=== PATIENT | male | born 1945 | race Caucasian/White ===

== ENCOUNTER → 2017-09-05 14:17 | Outpatient (CLI) | payer MEDICARE, OTHER, SELFPAY | PROVIDERS: PCP Family Medicine; Visit Provider Urology | DX: N40.1 Benign prostatic hyperplasia with lower urinary tract symptoms (principal) | CPT/HCPCS: 36415; 84153 ==

== ENCOUNTER → 2017-10-20 16:30 | Outpatient (CLI) | payer MEDICARE, OTHER, SELFPAY ==
[2017-10-20 17:30] LABS: Add Manual Diff / Slide Review NO; Basophils Percent Auto 0.4 % (0-2); Hematocrit 40.3 % (41-53); Hemoglobin 13.8 g/dL (13.5-17.5); Mean Corpuscular HGB Conc 34.3 % (30-36); Mean Corpuscular Hemoglobin 32.9 PG (26-34); Mean Corpuscular Volume 96.2 fL (80-100); Monocytes Percent Auto 8.4 % (3-14); Neutrophils Absolute Auto 3500 /uL (3000-5900); Neutrophils Percent Auto 55.2 % (50-75); Platelet Count 207 X10^3/uL (150-400); Red Blood Cell Count 4.19 X10^6/uL (4.5-5.9); Red Cell Distribution Width 13.3 % (11.6-14.8); White Blood Cell Count 6.3 X10^3/uL (4.5-11.0)
[2017-10-20 18:24] LABS: Alanine Aminotransferase 22 IU/L (21-72); Albumin 3.9 g/dL (3.5-5.0); Albumin Globulin Ratio 1.3 (1.0-2.8); Alkaline Phosphatase 64 U/L (38-126); Aspartate Aminotransferase 15 IU/L (17-59); Bilirubin Total 0.6 mg/dL (0.2-1.3); Blood Urea Nitrogen 18 mg/dL (9-20); Calcium 9.3 mg/dL (8.4-10.2); Carbon Dioxide 25 mmol/L (22-32); Chloride 109 mmol/L (98-107); Estimated Glomerular Filt Rate 37.3 mL/min (>60); Globulin 2.9 g/dL (1.7-4.1); Glucose 90 mg/dL (80-110); HEMOLYSIS < 15 (0-50); Potassium 4.9 mmol/L (3.4-5.1); Sodium 144 mmol/L (137-145); Total Protein 6.8 g/dL (6.3-8.2)
[2017-10-20 18:55] LABS: TSH w/ Reflex to FT4 1.52 uIU/mL (0.47-4.68)
[2017-10-24 19:44] LABS: Testosterone Free 36.4 pg/mL (30.0-135.0); Testosterone Total 283 ng/dL (250-1100)
== END ==
PROVIDERS: Family Provider Family Medicine; PCP Family Medicine; Visit Provider Family Medicine
DX: R63.4 Abnormal weight loss (principal); R53.83 Other fatigue
CPT/HCPCS: 36415; 80053; 84402; 84403; 84443; 85025

== ENCOUNTER → 2017-10-30 13:54 | Outpatient (CLI) | payer MEDICARE, OTHER, SELFPAY ==
--- NOTE | 2017-10-30 13:56 | DI.RAD.S_ITS ---
PROCEDURE: XR CHEST 2V INDICATIONS: unexplained weight loss TECHNIQUE: 2 views of the chest were acquired. COMPARISON: [facility], , CHEST 2 VIEW, 06/25/2012, 9:33. FINDINGS: Surgical changes and devices: None. Lungs and pleura: Elevation and flattening of the left hemidiaphragm is unchanged. There is tenting of the left cardiac margin. No pleural effusions or pneumothorax. Lungs are clear. Mediastinum: Mediastinal contours are normal. Heart size is normal. Bones and chest wall: No suspicious bony abnormalities. Soft tissues appear unremarkable. IMPRESSION: No interval change from prior exam to raise suspicion of active cardiopulmonary abnormality. 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 Dictated by: Kevin Norris M.D. on 10/30/2017 at 14:07 Approved by: Kevin Norris M.D. on 10/30/2017 at 14:09
== END ==
PROVIDERS: Family Provider Family Medicine; PCP Family Medicine; Visit Provider Family Medicine
DX: R63.4 Abnormal weight loss (principal)
CPT/HCPCS: 71046

== ENCOUNTER → 2017-11-11 08:35 | Outpatient (CLI) | payer MEDICARE, OTHER, SELFPAY ==
--- NOTE | 2017-11-11 09:13 | DI.CT.S_ITS ---
PROCEDURE: CT ABDOMEN PELVIS W CON INDICATIONS: Eval for unexplained weight loss TECHNIQUE: After the administration of oral and intravenous contrast, 5 mm thick sections acquired from the diaphragms to the symphysis. 5 mm thick coronal and sagittal reformats were performed. For radiation dose reduction, the following was used: automated exposure control, adjustment of mA and/or kV according to patient size. COMPARISON: None. FINDINGS: Image quality: Excellent. ABDOMEN: Lung bases: Fat containing left posterior hemidiaphragmatic hernia is present. Lung bases are otherwise clear. Heart size is normal. Solid organs: Liver is normal in size and enhancement. Gallbladder is surgically absent. Biliary system is non-dilated. Pancreas enhances normally. Spleen is normal in size and enhancement. No adrenal nodules. Kidneys are normal in size and enhancement, without hydronephrosis. Peritoneum and bowel: Small diverticulum in the 2nd portion of the duodenum measuring 13 mm. There is mild thickening of the sigmoid colon and rectum diffusely without surrounding fat stranding. Stomach, small bowel, and colon loops are otherwise normal in caliber and wall thickness. Normal appendix. No free fluid or air. Nodes and vessels: No retroperitoneal or mesenteric adenopathy. Aorta and inferior vena cava are normal in caliber. Miscellaneous: No ventral hernias. PELVIS: Genitourinary: Bladder wall thickness is normal. Prostate is enlarged. Multiple calcifications within the prostate are present. Miscellaneous: No inguinal hernias or adenopathy. Bones: No suspicious bony lesions. Left hip arthroplasty. No vertebral body compression fractures. IMPRESSION: 1. Thickening of the sigmoid colon and rectum, which may be related to sequelae of chronic diverticulitis, or suboptimal distention. This could be further assessed with endoscopy, if clinically indicated. 2. Normal appendix. 3. Prostate enlargement; recommend correlation with PSA values. Dictated by: Darcy Tellez M.D. on 11/11/2017 at 11:05 Approved by: Darcy Tellez M.D. on 11/11/2017 at 11:18
[2017-11-11 09:41] LABS: BUN Creatinine Ratio 13.8 (6-22); Blood Urea Nitrogen 22 mg/dL (9-20); Estimated Glomerular Filt Rate 42.7 mL/min (>60)
== END ==
PROVIDERS: PCP Family Medicine; Visit Provider Family Medicine
DX: Z01.812 Encounter for preprocedural laboratory examination (principal); R63.4 Abnormal weight loss; K57.10 Diverticulosis of small intestine without perforation or abscess without bleeding; N40.0 Benign prostatic hyperplasia without lower urinary tract symptoms; Z90.49 Acquired absence of other specified parts of digestive tract
CPT/HCPCS: 36415; 74177; 82565; 84520; Q9967

== ENCOUNTER 2018-10-05 14:56 | Emergency (ER) | payer MEDICARE, OTHER, SELFPAY ==
[2018-10-05 15:05] VITALS: BP 144/85; PULSE 91; RESP 22; O2SAT 98
[2018-10-05 15:14] VITALS: BP 157/90; BP 164/93; PULSE 82; RESP 25; O2SAT 99
[2018-10-05 15:15] VITALS: BP 170/80; PULSE 80
[2018-10-05] MEDS: NITROGLYCERIN 0.4 MG SL TAB SL (15:15)
[2018-10-05 15:18] VITALS: BP 134/87; PULSE 89; RESP 24; O2SAT 98
[2018-10-05 15:18] LABS: Add Manual Diff / Slide Review NO; Basophils Absolute Auto 0 /uL (0-100); Basophils Percent Auto 0.4 % (0-2); Eosinophils Absolute Auto 200 /uL (0-450); Eosinophils Percent Auto 1.7 % (2-4); Hematocrit 42.8 % (41-53); Lymphocytes Absolute Auto 1700 /uL (1100-4500); Lymphocytes Percent Auto 19.3 % (25-40); Mean Corpuscular HGB Conc 32.8 % (30-36); Mean Corpuscular Hemoglobin 32.2 PG (26-34); Mean Corpuscular Volume 97.9 fL (80-100); Monocytes Absolute Auto 800 /uL (0-900); Monocytes Percent Auto 9.1 % (3-14); Neutrophils Absolute Auto 6100 /uL (1500-7000); Neutrophils Percent Auto 69.5 % (50-75); Platelet Count 221 X10^3/uL (150-400); Red Blood Cell Count 4.37 X10^6/uL (4.5-5.9); Red Cell Distribution Width 14.1 % (11.6-14.8); White Blood Cell Count 8.7 X10^3/uL (4.5-11.0)
[2018-10-05] MEDS: ASPIRIN 81 MG TAB 324 MG PO (15:18)
[2018-10-05] MEDS: CLOPIDOGREL 75 MG TABLET 600 MG PO (15:21)
--- NOTE | 2018-10-05 15:21 | ED.CHESTPAIN ---
HPI - Chest Pain General Chief Complaint: Chest Pain Stated Complaint: Thinks having a heart attack Time Seen by Provider: 10/05/18 15:10 Source: patient Mode of arrival: ambulatory Limitations: no limitations History of Present Illness HPI narrative: Patient comes to the emergency department complaining of substernal chest pain radiating to his back since about 11:00 a.m. this morning. He states he felt a little bit of nausea and a little bit of shortness of breath when at all for started. Patient denies lightheadedness. Patient states that he had 1 episode of chest pain last week, and thought it was his allergies acting up, so he took some Zyrtec. The pain seemed to go away, but now has started up again worse than before. Patient denies any dyspnea on exertion or chest pain on exertion earlier in the week. He has a history of hyperlipidemia and hypertension, but is not known to have had any coronary artery disease. Patient denies other complaints at this time. Related Data Home Medications Medication Instructions Recorded Confirmed ASPIRIN (Aspir-Low) 81 mg PO QDAY #0 07/09/12 10/20/17 bupropion HCl [Wellbutrin SR] 100 mg PO HS #0 10/21/16 10/20/17 quetiapine [Seroquel] 100 mg PO HS #0 10/21/16 10/20/17 tadalafil [Cialis] 10 mg PO Q DAY PRN PRN 10/05/18 Previous Rx's Medication Instructions Recorded losartan [Cozaar] 100 mg PO Q DAY #90 tab 06/10/17 naproxen 500 mg tablet 500 mg PO BIDP PRN #120 tab 09/04/17 topiramate 50 mg tablet 50 mg PO BID #180 tab 01/06/18 atorvastatin 20 mg tablet 20 mg PO HS #90 tab 02/19/18 famotidine 20 mg tablet 20 mg PO BID #60 tab 02/24/18 omeprazole 20 mg capsule,delayed 20 mg PO QDAY #30 cap 05/20/18 release propranolol ER 60 mg capsule,24 60 mg PO QDAY #90 cer 05/21/18 hr,extended release Allergies Allergy/AdvReac Type Severity Reaction Status Date / Time codeine [CODEINE] AdvReac Unknown NAUSEA Verified 10/20/17 15:28 Review of Systems Constitutional Denies chills, Denies fever(s), Denies lethargy and Denies weakness Eyes Denies change in vision, Denies eye discharge, Denies irritation and Denies loss of vision ENT Ears, Nose, Mouth, and Throat: Denies change in voice, Denies neck pain and Denies sore throat Cardiovascular Reports chest pain, Denies irregular heart rhythm, Denies lightheadedness, Denies palpitations, Reports dyspnea, Denies dyspnea on exertion and Denies orthopnea Respiratory Denies cough, Reports dyspnea, Denies dyspnea on exertion and Denies wheezing Gastrointestinal Gastrointestinal: Denies abdominal pain, Denies change in bowel habits, Denies diarrhea, Reports nausea and Denies vomiting Genitourinary Denies hematuria, Denies flank pain, Denies urinary incontinence and Denies urinary urgency Musculoskeletal Denies neck pain Integumentary/Breasts Denies pruritus, Denies erythema, Denies rash and Denies wounds Neurologic Denies confusion, Denies loss of vision and Denies weakness Psychiatric Denies anxiety, Denies confusion, Denies depression, Denies homicidal ideation and Denies suicidal ideation Endocrine Denies palpitations Hematologic/Lymphatic Denies easy bruising Allergic/Immunologic Denies wheezing [facility] Medical History Depression (Chronic 12/23/14) Essential hypertension (Chronic 04/18/15) Gastroesophageal reflux disease without esophagitis (Chronic 04/18/15) 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) Mixed hyperlipidemia (Chronic 04/18/15) Posttraumatic stress disorder (Chronic 12/23/14) Slow transit constipation (Chronic 04/18/15) Chronic renal insufficiency, stage III (moderate) (Chronic 04/18/15) Tremor (Chronic 10/03/15) Anxiety (Chronic Unknown) BPH (benign prostatic hyperplasia) (Chronic Unknown) Carpal tunnel syndrome (Chronic 11/2016) Depression (Chronic Unknown) Diverticulitis (Chronic Unknown) Erectile dysfunction (Chronic Unknown) GERD (gastroesophageal reflux disease) (Chronic Unknown) Hyperlipemia (Chronic Unknown) Hypertension (Chronic Unknown) PTSD (post-traumatic stress disorder) (Chronic Unknown) H/O ETOH abuse (Resolved Unknown) Melanoma (Resolved Unknown) Scrotal mass (Resolved Unknown) Squamous cell carcinoma (Resolved Unknown) Surgical History History of orchiectomy (Resolved 06/2012) Hx of excision of dermoid cyst (Resolved ~1972) Hx of neck surgery (Resolved ~1995) History of hip replacement Family History Father Heart disease Congestive heart failure Mother No problems noted. Social History Smoking Status: Never smoker alcohol intake: never substance use type: does not use Family History Father Heart disease Congestive heart failure Mother No problems noted. Social History Smoking Status: Never smoker alcohol intake: never substance use type: does not use Exam Initial Vital Signs Initial Vital Signs: Vital Signs Pulse Rate 91 H 10/05/18 15:05 Respiratory Rate 22 10/05/18 15:05 Blood Pressure 144/85 H 10/05/18 15:05 Pulse Oximetry 98 10/05/18 15:05 Const General: cooperative and well developed Nutritional Appearance: well nourished Orientation: alert, awake, oriented x3 and not confused Other: Patient appears mildly anxious. [facility] Head: normocephalic and atraumatic Ears: external ears normal Nose: external nose normal and No nasal discharge Face and sinus: face symmetric and No dry mucous membranes Mouth: oral mucosae normal and moist mucous membranes Teeth and gingiva: dentition normal Eyes General: appearance normal, both eyes and all related structures Eyelids: eyelids normal Conjunctivae: conjunctivae normal Sclera: sclerae normal Pupils: PERRL EOM: EOM intact bilaterally Neck Neck: normal visual inspection, trachea midline, No lymphadenopathy, No midline deformity and No JVD Lymphatic: No lymphedema Chest Chest: normal inspection of the chest Resp Effort & Inspection: normal respiratory effort, able to speak in complete sentences, no respiratory distress and no use of accessory muscles Auscultation: clear to auscultation bilaterally, no rales, no rhonchi and no wheezes Cardio Rate: regular rate Rhythm: regular rhythm Heart Sounds: no click, no gallops, no murmurs and no rubs Pulses: normal peripheral pulses GI Inspection: non-distended Palpation: soft, no hepatosplenomegaly, No guarding, No pulsatile mass and No tender Auscultation: normal bowel sounds Back/Spine/Pelvis Back: No CVA tenderness Cervical Spine: cervical ROM normal and No pain with cervical ROM Thoracic/Lumbar Spine: thoracic and lumbar spine normal to inspection Skin General: no rashes or lesions noted, No jaundice and No petechiae Neuro General: alert, oriented x3, gait normal and no focal motor deficits Speech: speech normal Extrem General: full ROM, no clubbing, cyanosis or edema, no pedal edema and no calf tenderness Psych Appearance: well kempt Mental Status: mental status grossly normal Attitude: cooperative Thought Content: normal and suicidality Judgment: judgment good Course Course Narrative: EKG was performed upon the patient's arrival in the emergency department, and patient was found to have a STEMI in the lateral leads. STEMI protocol was immediately initiated. Patient was given a heparin bolus and a dose of Plavix. A heparin drip and Lopressor were ordered, as were aspirin and nitroglycerin. I spoke with Dr. Lee at the [facility] Emergency Department, who accepted the patient in transfer be a STEMI protocol. I discussed with the patient the findings and the need for emergent transfer, and patient did agree. Emergent ACLS transfer be a STEMI protocol was arranged and patient was transferred. Orders Ordered: Discontinued Medications Aspirin (Aspirin Chew) 324 mg PO NOW ONE Stop: 10/05/18 15:15 Last Admin: 10/05/18 15:18 Dose: 324 mg Aspirin (Aspirin Chew) 324 mg PO NOW ONE Stop: 10/05/18 15:17 Last Admin: 10/05/18 15:18 Dose: Not Given Clopidogrel Bisulfate (Plavix) 600 mg PO NOW ONE Stop: 10/05/18 15:15 Last Admin: 10/05/18 15:21 Dose: 600 mg Heparin Sodium (Porcine) (Heparin) 5,000 unit IV NOW ONE Stop: 10/05/18 15:15 Last Admin: 10/05/18 15:22 Dose: 5,000 unit Heparin Sodium (Porcine) (Heparin) 5,000 unit IV NOW ONE Stop: 10/05/18 15:17 Last Admin: 10/05/18 15:23 Dose: Not Given Heparin Sodium/Dextrose (Heparin Drip) 25,000 unit in 500 mls @ 20 mls/hr IV CONT FE; Protocol Metoprolol Tartrate (Lopressor) 5 mg IV Q5M FE Stop: 10/05/18 15:26 Nitroglycerin (Nitrostat) 0.4 mg SL [id number] PRN PRN Reason: Chest Pain Last Admin: 10/05/18 15:15 Dose: 0.4 mg Vital Signs - 8 hr 10/05/18 15:05 Pulse Rate 91 H Respiratory Rate 22 Blood Pressure 144/85 H Pulse Oximetry 98 MDM - Chest Pain Medical Records Data Attestation: I reviewed the patient's medical records. Lab Data Attestation: I reviewed the patient's lab results. Result diagrams: 10/05/18 15:08 10/05/18 15:08 Lab Results 10/05/18 10/05/18 Range/Units 15:08 15:08 WBC 8.7 (4.5-11.0) X10^3/uL RBC 4.37 L (4.5-5.9) X10^6/uL Hgb 14.0 (13.5-17.5) g/dL Hct 42.8 (41-53) % MCV 97.9 (80-100) fL MCH 32.2 (26-34) PG MCHC 32.8 (30-36) % RDW 14.1 (11.6-14.8) % Plt Count 221 (150-400) X10^3/uL Neut % (Auto) 69.5 (50-75) % Lymph % (Auto) 19.3 L (25-40) % [place] % (Auto) 9.1 (3-14) % Eos % (Auto) 1.7 L (2-4) % Baso % (Auto) 0.4 (0-2) % Neut # (Auto) 6100 (8712-4913) /uL Lymph # (Auto) 1700 (7348-6751) /uL [place] # (Auto) 800 (0-900) /uL Eos # (Auto) 200 (0-450) /uL Baso # (Auto) 0 (0-100) /uL Sodium 143 (137-145) mmol/L Potassium 4.3 (3.4-5.1) mmol/L Chloride 108 H (98-107) mmol/L Carbon Dioxide 26 (22-32) mmol/L BUN 27 H (9-20) mg/dL Creatinine 1.30 H (0.66-1.25) mg/dL Estimated GFR 54.1 L (>60) mL/min BUN/Creatinine Ratio 20.8 (6-22) Glucose 109 (80-110) mg/dL Calcium 9.1 (8.4-10.2) mg/dL Total Bilirubin 0.6 (0.2-1.3) mg/dL AST 62 H (17-59) IU/L ALT 41 (21-72) IU/L Alkaline Phosphatase 80 (38-126) U/L Total Creatine Kinase 454 H (55-170) U/L CK-MB (CK-2) 12.30 H (<2.37) ng/mL CK-MB (CK-2) Rel Index 2.7 (1.5-5.0) % Troponin I 2.640 H* (0.01-0.034) ng/mL Total Protein 7.2 (6.3-8.2) g/dL Albumin 3.8 (3.5-5.0) g/dL Globulin 3.4 (1.7-4.1) g/dL Albumin/Globulin Ratio 1.1 (1.0-2.8) ECG Data Attestation: I personally reviewed and interpreted this ECG as follows: (See below) Interpretation: Twelve lead EKG performed October 05, 2018 at 3:05 p.m., as follows: Regular ventricular rhythm with a rate of 82 beats per minute OK interval 129 millisecond QRS duration [address] elevations noted in leads V4 through V6, and ST depressions noted in leads V1 and V2. Questionable ST elevation also noted in leads 2, 3, and AVF. Interpretation: Normal sinus rhythm; marked ST elevation, consider lateral injury; ST elevation, consider inferior injury; STEMI; abnormal EKG as interpreted by ED MD. Critical Care Time Critical Care Time: Yes Total Critical Care Time: 30 Attestation: Critical care time was necessary, due to high probability of imminent decline and , due to ST elevation AK. Critical care time is exclusive of separately billable procedures. Critical care time included: Interviewing and examining the patient, ordering and reviewing laboratory studies, ordering and reviewing imaging studies, evaluating cardiac output, [evaluating oxygen saturation], discussion with consultants, discussion with family, re-examining the patient, and documentation. Discharge Plan Departure Patient Disposition: [facility] Clinical Impression: STEMI (ST elevation myocardial infarction) Discharge Date/Time: 10/05/18 15:23 Interventions: ED Discharge Assessment Last Done: 10/05/18 15:23 Prescriptions: No Action ASPIRIN (Aspir-Low) 81 mg PO QDAY Qty: 0 RF: 0 quetiapine [Seroquel] 100 MG tablet 100 mg PO HS Qty: 0 RF: 0 bupropion HCl [Wellbutrin SR] 100 MG tablet extended release 12 hr 100 mg PO HS Qty: 0 RF: 0 losartan [Cozaar] 100 MG tablet 100 mg PO Q DAY Qty: 90 RF: 2 naproxen [Naprosyn] 500 mg tablet 500 mg PO BIDP PRN (Reason: pain) Qty: 120 RF: 3 topiramate [Topamax] 50 mg tablet 50 mg PO BID Qty: 180 RF: 1 famotidine 20 mg tablet 20 mg PO BID Qty: 60 RF: 0 omeprazole 20 mg capsule,delayed release(DR/EC) 20 mg PO QDAY Qty: 30 RF: 0 propranolol [Inderal LA] 60 mg capsule,extended release 24 hr 60 mg PO QDAY Qty: 90 RF: 0 atorvastatin [Lipitor] 20 mg tablet 20 mg PO HS Qty: 90 RF: 1 tadalafil [Cialis] 10 MG tablet 10 mg PO Q DAY PRN PRN (Reason: Erectile Dysfunction) RF: 0
[2018-10-05] MEDS: HEPARIN 5,000 UNIT/ML VIAL 5000 UNIT IV (15:22)
[2018-10-05 15:29] LABS: Alanine Aminotransferase 41 IU/L (21-72); Albumin 3.8 g/dL (3.5-5.0); Albumin Globulin Ratio 1.1 (1.0-2.8); Alkaline Phosphatase 80 U/L (38-126); Aspartate Aminotransferase 62 IU/L (17-59); BUN Creatinine Ratio 20.8 (6-22); Bilirubin Total 0.6 mg/dL (0.2-1.3); Blood Urea Nitrogen 27 mg/dL (9-20); Calcium 9.1 mg/dL (8.4-10.2); Carbon Dioxide 26 mmol/L (22-32); Chloride 108 mmol/L (98-107); Creatine Kinase 454 U/L (55-170); Estimated Glomerular Filt Rate 54.1 mL/min (>60); Globulin 3.4 g/dL (1.7-4.1); Glucose 109 mg/dL (80-110); HEMOLYSIS < 15 (0-50); Potassium 4.3 mmol/L (3.4-5.1); Sodium 143 mmol/L (137-145); Total Protein 7.2 g/dL (6.3-8.2)
--- NOTE | 2018-10-05 15:30 | PC.NURSE ---
Spoke with patient's and daughter and they will give patient's a ride over to [facility] to see patient
[2018-10-05 15:45] LABS: CKMB % Relative Index 2.7 % (1.5-5.0)
--- NOTE | 2018-10-05 16:10 | PC.NURSE ---
Critical troponin called to ED. Faxed results to [facility] ED.
--- NOTE | 2018-10-05 16:19 | PC.NURSE ---
Received call from Ana @ [facility] requesting notes / reports. Printed and faxed as requested.
== END 2018-10-05 15:23 | disposition short-term general hospital (02) ==
PROVIDERS: Emergency Provider Emergency Medicine
DX: I21.3 ST elevation (STEMI) myocardial infarction of unspecified site (principal)
CPT/HCPCS: 36591; 80053; 82550; 82553; 84484; 85025; 93005; 96374; 99283; 99284; J1644

== ENCOUNTER → 2018-12-21 14:04 | Outpatient (CLI) | payer MEDICARE, OTHER, SELFPAY ==
--- NOTE | 2018-12-21 | DI.CT.S_ITS ---
PROCEDURE: CT ABDOMEN PELVIS WO CON INDICATIONS: Personal history of urinary (tract) infections TECHNIQUE: Noncontrast 5 mm thick sections acquired from the diaphragms to the symphysis. 5 mm coronal and sagittal reformats were then performed. For radiation dose reduction, the following was used: automated exposure control, adjustment of mA and/or kV according to patient size. COMPARISON: [facility], CT, CT ABDOMEN PELVIS W CON, 11/11/2017, 10:07. FINDINGS: Image quality: Excellent. ABDOMEN: Lung bases: There is a fat containing left posterior hemidiaphragmatic hernia measuring 70 mm diameter. Lung bases are otherwise clear. Heart size is normal. Solid organs: Liver is normal in size. Gallbladder is surgically absent. Pancreas is normal in contours. Spleen is normal in size. No adrenal nodules. Kidneys are normal in size, without hydronephrosis. There is a septated cyst within the inferior pole right kidney measuring 34 mm. There is a nonobstructing 3 mm diameter calculus within the left interpolar kidney. Peritoneum and bowel: Unenhanced bowel loops demonstrate normal wall thickness and caliber. No free fluid or air. An appendicolith versus retained orally administered contrast is present. No evidence of acute appendicitis. Nodes and vessels: No retroperitoneal or mesenteric adenopathy by size criteria. Aorta and inferior vena cava are normal in caliber. Miscellaneous: No ventral hernias. A healed ventral incision is present. PELVIS: Genitourinary: Bladder wall thickness is normal. Miscellaneous: No inguinal hernias or adenopathy. Bones: No suspicious bony lesions. Left hip arthroplasty has been performed. No vertebral body compression fractures. IMPRESSION: 1. Nonobstructing left renal calculus. 2. No evidence of urinary tract obstruction. 3. Appendicolith versus retained oral contrast. Dictated by: Darcy Tellez M.D. on 12/21/2018 at 17:25 Approved by: Darcy Tellez M.D. on 12/21/2018 at 17:30
== END ==
PROVIDERS: Visit Provider Urology
DX: N20.0 Calculus of kidney (principal); Z87.440 Personal history of urinary (tract) infections; Z90.49 Acquired absence of other specified parts of digestive tract
CPT/HCPCS: 74176

== ENCOUNTER → 2019-06-21 11:04 | Outpatient (CLI) | payer MEDICARE, OTHER, SELFPAY ==
--- NOTE | 2019-06-21 | DI.US.S_ITS ---
PROCEDURE: US RENAL COMPLETE INDICATIONS: Calculus of kidney TECHNIQUE: Real-time scanning was performed of the kidneys and bladder, with image documentation. COMPARISON: [facility], CT, CT ABDOMEN PELVIS WO CON, 12/21/2018, 14:11. FINDINGS: Kidneys: Kidneys are normal in size. Right kidney measures 10.2 cm long; left kidney measures 11.0 cm long. Right renal cortical thickness is 1.5 cm; left renal cortical thickness is 1.5 cm. Renal cortical echotexture is normal. No hydronephrosis or nephrolithiasis. No suspicious solid mass lesions. Inferior right renal cyst redemonstrated measuring 3.7 x 3.0 x 4.1 cm similar to prior CT. Bladder: Pre-void bladder volume is 70 mL. Post-void residual is 14 mL. Pre-void images demonstrate no intraluminal masses or stones. On pre-void images, bilateral ureteral jets are noted with color Doppler interrogation. (Of note, ureteral jets may not be detectable in up to 25% of cases due to insufficient differences in specific gravity between ureteral and bladder urine). Miscellaneous: No free pelvic fluid. IMPRESSION: 1. No definite renal stones identified. 2. A 3.7 cm right inferior pole renal cyst redemonstrated. Dictated by: Ras Martel [facility] Interpreted: Kaleb Parra MD on 06/21/2019 at 13:55 Approved by: Kaleb Parra M.D. on 06/24/2019 at 16:45
[2019-06-21 13:42] LABS: Prostate Specific Antigen 0.952 ng/mL (0.10-4.00)
== END ==
PROVIDERS: PCP Family Medicine; Referring Provider Urology; Visit Provider Urology
DX: N20.0 Calculus of kidney (principal); N28.1 Cyst of kidney, acquired; N40.1 Benign prostatic hyperplasia with lower urinary tract symptoms
CPT/HCPCS: 36415; 76770; 84153

== ENCOUNTER → 2020-02-02 09:20 | Outpatient (CLI) | payer MEDICARE, OTHER, SELFPAY ==
--- NOTE | 2020-02-02 | DI.ECHO.S_ITS ---
[place] +---------+ [facility] +---------+ : : [address] : : : : [id number] : : : : Phone: [phone] Echocardiogram Report + + :Name: KARY ELI Study Date: 02/02/2020 Height: 68 in : :[facility] Weight: 176 lb : : Gender: Male BSA: 1.9 m2 : :: 1945 Age: 74 yrs BP: 160/100 mmHg: :Reason For Study: PERIPHERAL VASCULAR DISEASE : :Ordering Physician: YESI, : :NAEEM SHIRLEY Performed By: Sammi Sidhu : :Referring: NAEEM KEY : + + Interpretation Summary The ejection fraction is estimated to be 40-45%. There is a mild dyssynchronous contraction pattern, consistent with a conduction abnormality. Mid to distal inferolateral hypokinesis There is mild mitral regurgitation. Procedure: A two-dimensional transthoracic echocardiogram with color flow and Doppler was performed. The study quality was technically adequate. Comparison is made with the echocardiogram of 10/12/2018. Left Ventricle: The left ventricle is normal in size and wall thickness. The ejection fraction is estimated to be 40-45%. There is a mild dyssynchronous contraction pattern, consistent with a conduction abnormality. Mid to distal inferolateral hypokinesis. Diastolic parameters suggest a relaxation abnormality of the left ventricle, consistent with probable normal filling pressures. Right Ventricle: The right ventricle is normal in size and function. Atria: Both atria are normal in size. There is no Doppler evidence for an interatrial shunt. Mitral Valve: The mitral valve leaflets appear borderline thickened, but open well. There is mild mitral regurgitation. Aortic Valve: The aortic valve is trileaflet. The aortic valve opens well. There is no aortic valve stenosis. No aortic regurgitation is present. Tricuspid Valve: The tricuspid valve is normal in structure and function. Pulmonary artery pressures cannot be estimated because of the lack of a measurable TR jet velocity but the IVC suggests a CVP of around 3 mmHg. There is trace tricuspid regurgitation. Pulmonic Valve: The pulmonic valve is not well seen, but is grossly normal. There is no pulmonic valvular regurgitation. Great Vessels: The aortic root is normal size. The ascending aorta is mildly enlarged. The IVC is of normal diameter and collapses greater than 50% with a sniff. This suggests a low right atrial pressure of 3 mm Hg. Pericardium/ Pleura There is no pericardial effusion. There is no pleural effusion. MMode/2D Measurements & Calculations LVIDd: 4.3 cm LVOT diam: 2.4 cm LVIDs: 3.1 cm Ao root diam: 3.6 cm FS: 27.8 % asc Aorta Diam: 3.8 cm EPSS: 1.3 cm Ao Arch Diam (Prox Trans): 3.0 cm IVSd: 0.89 cm LVPWd: 0.80 cm LV cohen. diameter/BSA (cm/m^2): 2.2 LV sys. diameter/BSA (cm/m^2): 1.6 LA A2 area: 18.1 cm2 RA long axis: 4.4 cm LA A4 area: 12.0 cm2 RA area: 12.6 cm2 LA length (vol): 4.4 cm RA vol: 30.3 ml LA vol: 41.3 ml RA : 15.6 ml/m2 LA vol index: 21.4 ml/m2 IVC diam: 1.5 cm RVD1 (basal): 3.2 cm TAPSE: 1.8 cm Doppler Measurements & Calculations Ao V2 max: 115.9 cm/sec LVOT Max Cesar: 80.8 cm/sec Ao V2 mean: 82.9 cm/sec LV V1 max P.6 mmHg Ao max P.4 mmHg LV V1 VTI: 16.1 cm Ao mean P.0 mmHg OLIVERIO(I,D): 3.7 cm2 Ao V2 VTI: 19.3 cm OLIVERIO(V,D): 3.1 cm2 sev ratio: 0.84 OLIVERIO indexed to BSA (cm^2/m^2): 1.9 MV E max cesar: 41.4 cm/sec PA V2 max: 54.4 cm/sec MV A max cesar: 86.6 cm/sec PA V2 mean: 35.4 cm/sec MV E/A: 0.48 PA mean P.60 mmHg Med Peak E' Cesar: 5.1 cm/sec PA pr(Accel): 55.0 mmHg E/E' med: 8.1 Lat Peak E' Cesar: 5.4 cm/sec E/E' lat: 7.6 E/e' average: 7.9 MV dec time: 0.25 sec SV(LVOT): 71.0 ml Reading Physician:09:33 AM
== END ==
PROVIDERS: PCP Family Medicine; Referring Provider Family Medicine; Visit Provider Registered Nurse
DX: I34.0 Nonrheumatic mitral (valve) insufficiency (principal); I73.9 Peripheral vascular disease, unspecified; I25.5 Ischemic cardiomyopathy; I25.10 Atherosclerotic heart disease of native coronary artery without angina pectoris; Z95.5 Presence of coronary angioplasty implant and graft
CPT/HCPCS: 93306

== ENCOUNTER → 2021-04-25 14:57 | Outpatient (CLI) | payer OTHER, MEDICARE, SELFPAY ==
--- NOTE | 2021-04-25 | DI.CT.S_ITS ---
PROCEDURE: CT ABDOMEN PELVIS WO CON INDICATIONS: URINARY TRACT INFECTION TECHNIQUE: Noncontrast 5 mm thick sections acquired from the diaphragms to the symphysis. 5 mm coronal and sagittal reformats were then performed. For radiation dose reduction, the following was used: automated exposure control, adjustment of mA and/or kV according to patient size. COMPARISON: [facility], CT, CT ABDOMEN PELVIS WO CON, 12/21/2018, 14:11. FINDINGS: Image quality: Good. Beam hardening artifact in the pelvis. ABDOMEN: Lung bases: Lung bases are clear. Heart size is normal. Coronary artery calcifications. Left Bochdalek hernia. Asymmetric elevation of the left hemidiaphragm. Solid organs: Liver is normal in size. Gallbladder is absent. Pancreas is normal in contours. Spleen is normal in size. No adrenal nodules. Kidneys are normal in size, without hydronephrosis. There is a punctate nonobstructing calculus at the superior pole of the left kidney. This appears new compared to 2019. The previously seen small stone in the mid left kidney is no longer present. Right renal simple appearing cyst is unchanged. Peritoneum and bowel: Unenhanced bowel loops demonstrate normal wall thickness and caliber. Small duodenal diverticulum. The appendix is not dilated. No free fluid or air. Nodes and vessels: No retroperitoneal or mesenteric adenopathy by size criteria. Aorta and inferior vena cava are normal in caliber. Miscellaneous: No ventral hernias. Ventral abdominal wall scar. PELVIS: Genitourinary: Prostatomegaly. No bladder stones. Beam hardening artifact. Miscellaneous: No inguinal hernias or adenopathy. Left testicle appears to be high riding. Bones: No suspicious bony lesions. No vertebral body compression fractures. Moderate to severe DDD. Left hip arthroplasty. IMPRESSION: 1. No obstructing kidney stones. No hydronephrosis. 2. Punctate nonobstructing kidney stone in the left kidney superior pole. 3. Prostatomegaly. Dictated by: Rodrigo Silver M.D. on 04/25/2021 at 16:38 Approved by: Rodrigo Silver M.D. on 04/25/2021 at 16:45
== END ==
PROVIDERS: PCP Internal Medicine; Referring Provider Internal Medicine; Visit Provider Internal Medicine
DX: N39.0 Urinary tract infection, site not specified (principal); N20.0 Calculus of kidney; N40.0 Benign prostatic hyperplasia without lower urinary tract symptoms
CPT/HCPCS: 74176